=== PATIENT | female | born 1990 | race Caucasian/White ===

== ENCOUNTER 2017-03-09 12:44 | Emergency (ER) | payer SELFPAY ==
[2017-03-09 12:59] VITALS: BP 138/89
--- NOTE | 2017-03-09 15:18 | Emergency Department Report ---
ED Female HPI - General Chief complaint: Pain General Stated complaint: RT HIP,KNEE AND LEG PAIN/OV CYST Time Seen by Provider: 03/09/17 13:47 Source: patient Mode of arrival: Ambulatory Limitations: No Limitations - History of Present Illness Initial comments: pt is a 27 y/o w/f who presents for vaginal discharge white thick foul smelling x 1 week LMP 02/04/2017, last contact 3 days ago, pt denies fevers no chills no abdominal pain no n/v , no rash no lesions no open sores, Complaint: vaginal discharge Onset/Timin -: week(s) Radiation: non-radiating Severity: moderate Severity scale (0 -10): 4 Quality: other (vaginal discharge ) Consistency: constant Improves with: none Worsens with: none Are you Now?: No Last Menstrual Period: 03/07/17 EDC: 12/12/17 Associated Symptoms: vaginal discharge, dysuria, other (back pain ). denies: vaginal bleeding, abdominal pain, nausea/vomiting, fever/chills, headaches, loss of appetite, hematuria, rash, seizure, shortness of breath, syncope, weakness - Related Data Sexually active: Yes : 1 Para: 1 A: 0 Previous Rx's Medication Instructions Recorded Last Taken Type Ibuprofen [Motrin] 800 mg PO Q8H PRN #30 tablet 09/02/14 Unknown Rx metroNIDAZOLE 500 mg PO BID #10 tablet 10/01/14 Unknown Rx traMADol [Ultram 50 MG tab] 50 mg PO Q6HR PRN #10 tablet 10/01/14 Unknown Rx Ibuprofen [Motrin 800 MG tab] 800 mg PO Q8HR PRN #30 tablet 03/09/17 Unknown Rx metroNIDAZOLE [Flagyl] 500 mg PO Q12HR #14 tab 03/09/17 Unknown Rx Allergies Allergy/AdvReac Type Severity Reaction Status Date / Time sulfamethoxazole Allergy Hives Verified 03/09/17 12:59 [From Bactrim] trimethoprim [From Bactrim] Allergy Hives Verified 03/09/17 12:59 ED Review of Systems ROS: Stated complaint: RT HIP,KNEE AND LEG PAIN/OV CYST Other details as noted in HPI Constitutional: denies: chills, fever Eyes: denies: eye pain, eye discharge, vision change ENT: denies: ear pain, throat pain Respiratory: denies: cough, shortness of breath, wheezing Cardiovascular: denies: chest pain, palpitations Endocrine: no symptoms reported Gastrointestinal: denies: abdominal pain, nausea, diarrhea Genitourinary: urgency, dysuria, frequency, discharge (white thick ), dyspareunia. denies: hematuria, abnormal menses Musculoskeletal: back pain Skin: denies: rash, lesions Neurological: denies: headache, weakness, paresthesias Psychiatric: denies: anxiety, depression Hematological/Lymphatic: denies: easy bleeding, easy bruising ED Past Medical Hx - Past Medical History Previous Medical History?: Yes Hx Hypertension: No Hx CVA: No Hx Heart Attack/AMI: No Hx Congestive Heart Failure: No Hx Diabetes: No Hx Deep Vein Thrombosis: No Hx Pulmonary Embolism: No Hx GERD: No Hx Liver Disease: No Hx Renal Disease: No Hx of Cancer: Yes (cervical) Hx Sickle Cell Disease: No Hx Arthritis: No Hx Headaches / Migraines: No Hx Seizures: No Hx Kidney Stones: No Hx Psychiatric Treatment: No Hx Asthma: No Hx COPD: No Hx Tuberculosis: No Hx Dementia: No Hx HIV: No Additional medical history: Ovarian cysts 2011 - Surgical History Past Surgical History?: Yes Hx Coronary Stent: No Hx Open Heart Surgery: No Hx Pacemaker: No Hx Cholecystectomy: No Hx Appendectomy: No Additional Surgical History: 2 cervical biopsies, Leep - Social History Smoking Status: Current Every Day Smoker Substance Use Type: None - Medications Home Medications: Home Medications Medication Instructions Recorded Confirmed Last Taken Type Ibuprofen [Motrin] 800 mg PO Q8H PRN #30 tablet 09/02/14 Unknown Rx metroNIDAZOLE 500 mg PO BID #10 tablet 10/01/14 Unknown Rx traMADol [Ultram 50 MG tab] 50 mg PO Q6HR PRN #10 tablet 10/01/14 Unknown Rx Ibuprofen [Motrin 800 MG tab] 800 mg PO Q8HR PRN #30 tablet 03/09/17 Unknown Rx metroNIDAZOLE [Flagyl] 500 mg PO Q12HR #14 tab 03/09/17 Unknown Rx ED Physical Exam - General Limitations: No Limitations General appearance: alert, in no apparent distress - Head Head exam: Present: atraumatic, normocephalic - Eye Eye exam: Present: normal appearance - ENT ENT exam: Present: mucous membranes moist - Neck Neck exam: Present: normal inspection - Respiratory Respiratory exam: Present: normal lung sounds bilaterally. Absent: respiratory distress - Cardiovascular Cardiovascular Exam: Present: regular rate, normal rhythm. Absent: systolic murmur, diastolic murmur, rubs, gallop - GI/Abdominal GI/Abdominal exam: Present: soft, normal bowel sounds - Rectal Rectal exam: Present: deferred - External exam: Present: other (small skin toned lesion to mons no pain no drainage ). Absent: erythema, swelling, lacerations, ecchymosis, bleeding Speculum exam: Present: erythema, vaginal discharge (yellow white malodorous ). Absent: cervical discharge, vaginal bleeding, foreign body, tissue, laceration Bi-manual exam: Present: cervical motion tendernes. Absent: adnexal tenderness , uterine enlargement, uterine tenderness - Extremities Exam Extremities exam: Present: normal inspection - Back Exam Back exam: Present: normal inspection, full ROM. Absent: tenderness, CVA tenderness (R), CVA tenderness (L), muscle spasm, paraspinal tenderness, vertebral tenderness, rash noted - Neurological Exam Neurological exam: Present: alert, oriented X3 - Psychiatric Psychiatric exam: Present: normal affect, normal mood - Skin Skin exam: Present: warm, dry, intact, normal color. Absent: rash ED Course Vital Signs 03/09/17 12:55 Temperature 98.7 F Pulse Rate 88 Respiratory 16 Rate Blood Pressure 138/89 O2 Sat by Pulse 99 Oximetry ED Medical Decision Making - Medical Decision Making t is a 27 y/o w/f who presents for vaginal discharge white thick foul smelling x 1 week LMP 02/04/2017, last contact 3 days ago, pt denies fevers no chills no abdominal pain no n/v , no rash no lesions no open sores, exam: mons : small lesion to mons skin toned nonpainful no discharge no satallite lesions , no rash , vulvovagina: no rash no lesion no discharge no ulcer, vagina: moderate erythema yellow /white discharge thick malodorous, no lesion no trauma no bleeding, cervix closed no discharge noted CMT,plan: UA: normal, HCG:neg , GC/ Ch cultures, tx of std exposure given symptoms pt will follow up with health department for hiv screening, pt verbalized ageement and understanding of discharge plan. Critical care attestation.: If time is entered above; I have spent that time in minutes in the direct care of this critically ill patient, excluding procedure time. ED Disposition Clinical Impression: STD exposure, BV (bacterial vaginosis) Disposition: DC- TO HOME OR SELFCARE Is pt being admited?: No Does the pt Need Aspirin: No Condition: Good Instructions: Bacterial Vaginosis (ED), Sexually Transmitted Diseases in Adolescents (ED) Prescriptions: Ibuprofen [Motrin 800 MG tab] 800 mg PO Q8HR PRN #30 tablet PRN Reason: Pain metroNIDAZOLE [Flagyl] 500 mg PO Q12HR #14 tab Referrals: PRIMARY CARE,MD [Primary Care Provider] - 3-5 Days Forms: Work/School Release Form(ED), STI Treatment and Prevention Time of Disposition: 16:21
[2017-03-09] MEDS ORDERED: XYLOCAINE 1% MPF 5 mL INFILTRATI ONE (15:21)
[2017-03-09] MEDS ORDERED: ULTRAM PO ONE (15:21)
[2017-03-09] MEDS ORDERED: ROCEPHIN IM ONE (15:21)
[2017-03-09] MEDS ORDERED: ZITHROMAX PO ONE (15:21)
[2017-03-09 15:44] LABS: Bacteria,Urine 1+ /HPF (Negative); Bilirubin,Urine NEG (Negative); Blood,Urine NEG (Negative); Ketones,Urine NEG (Negative); Leukocyte Esterase,Urine NEG (Negative); Nitrite,Urine NEG (Negative); Protein,Urine <15 mg/dL mg/dL (Negative); Urobilinogen,Urine < 2.0 mg/dL (<2.0)
== END 2017-03-09 16:37 | disposition home or self-care (01) ==
LOC: ED 12:44
DX: N76.0 Acute vaginitis (principal); A64 Unspecified sexually transmitted disease; F17.200 Nicotine dependence, unspecified, uncomplicated; Z85.41 Personal history of malignant neoplasm of cervix uteri; Z98.890 Other specified postprocedural states; Z88.1 Allergy status to other antibiotic agents
CPT/HCPCS: 81001; 81025; 87210; 87591; 96372; 99284; J0696

== ENCOUNTER 2017-03-21 12:55 | Emergency (ER) | payer SELFPAY ==
[2017-03-21 13:35] VITALS: BP 118/77
== END 2017-03-21 14:50 | disposition left against medical advice (07) ==
LOC: ED 12:55
DX: M25.561 Pain in right knee (principal); Z53.21 Procedure and treatment not carried out due to patient leaving prior to being seen by health care provider

== ENCOUNTER 2017-05-10 12:54 | Emergency (ER) | payer SELFPAY ==
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
[2017-05-10] MEDS ORDERED: TORADOL IM ONE (16:06)
--- NOTE | 2017-05-10 16:17 | Ultrasound Report ---
RIGHT BREAST ULTRASOUND: 05/10/17 CLINICAL: 27-year-old with an enlarging palpable right breast mass. COMPARISON: None. FINDINGS: Ultrasound of the upper-outer right breast was performed and demonstrated normal fibroglandular and fatty structures with no mass, cyst or shadowing. The technologist felt no mass. IMPRESSION: Negative right breast ultrasound. BI-RADS 1 - - Negative RECOMMENDATION: Clinical followup. Recommend a mammogram if clinical findings are suspicious for a mass.
[2017-05-10 16:52] VITALS: BP 118/76
== END 2017-05-10 16:51 | disposition home or self-care (01) ==
LOC: ED 12:54
DX: N64.4 Mastodynia (principal); F17.200 Nicotine dependence, unspecified, uncomplicated
CPT/HCPCS: 76642; 96372; 99283; J1885

== ENCOUNTER 2019-05-27 15:02 | Emergency (ER) | payer OTHER ==
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
--- NOTE | 2019-05-27 16:51 | XRay Report ---
XR spine cervical 2-3V INDICATION / CLINICAL INFORMATION: pain. COMPARISON: None available. FINDINGS: BONES/JOINT(S): No acute fracture or subluxation. Mild degenerative disease at C5-6 with mild disc he ight loss and endplate osteophyte formation. SOFT TISSUES: No significant abnormality. ADDITIONAL FINDINGS: None. Signer Name: Thor Minor MD Signed: 05/27/2019 4:46 PM Workstation Name: [id number]
[2019-05-27] MEDS ORDERED: IBUPROFEN 600 MG TAB PO ONE (20:15)
[2019-05-27] MEDS ORDERED: ONDANSETRON 4 MG ODT TAB PO ONE (20:15)
[2019-05-27] MEDS ORDERED: HYDROcodone/ACETAMINOPHEN 5-325 MG TAB PO ONE (20:15)
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
[2019-05-28 01:08] VITALS: BP 117/86
== END 2019-05-28 | disposition home or self-care (01) ==
LOC: ED 15:02
DX: S00.03XA Contusion of scalp, initial encounter (principal); M62.830 Muscle spasm of back; M62.838 Other muscle spasm; F17.200 Nicotine dependence, unspecified, uncomplicated; F10.10 Alcohol abuse, uncomplicated; Z79.899 Other long term (current) drug therapy; Z88.8 Allergy status to other drugs, medicaments and biological substances; V49.49XA Driver injured in collision with other motor vehicles in traffic accident, initial encounter; Y93.89 Activity, other specified; Y92.410 Unspecified street and highway as the place of occurrence of the external cause; Y99.8 Other external cause status
CPT/HCPCS: 70450; 72040; 72131; Q0162

== ENCOUNTER 2021-12-02 16:35 | Emergency (ER) | payer SELFPAY ==
[2021-12-02 17:01] VITALS: BP 109/80
[2021-12-02 17:41] LABS: HCG Qualitative,Urine Negative (Negative)
[2021-12-02 17:45] LABS: Bacteria,Urine 2+ /HPF (Negative); Bilirubin,Urine NEG (Negative); Blood,Urine NEG (Negative); Color,Urine Amber (Yellow); Mucus,Urine 3+ /HPF; Urobilinogen,Urine < 2.0 mg/dL (<2.0); WBC,Urine > 182.0 /HPF (0.0-6.0)
== END 2021-12-03 14:51 ==
LOC: ED 16:35
DX: R11.10 Vomiting, unspecified (principal); Z53.21 Procedure and treatment not carried out due to patient leaving prior to being seen by health care provider
CPT/HCPCS: 81001; 81025